=== PATIENT | female | born 1955 | race Caucasian/White ===

== ENCOUNTER 2023-11-06 07:52 | Outpatient (CLI) | payer OTHER, SELFPAY ==
--- NOTE | ~2023-11-06 | CT_ITS ---
EXAMINATION: CT abdomen pelvis w con DATE: 11/06/2023 08:42 INDICATION: Pelvic mass TECHNIQUE: Computed tomography (CT) of the abdomen and pelvis was performed with 100 mL Omnipaque-350 intravenous contrast. Automated exposure control and iterative reconstruction technique were employe d. The dose-length product was 589.63 mGy-cm. COMPARISON: None FINDINGS: Mild dependent atelectasis in bilateral lower lobes. Heart size is normal. No pericardial or pleural effusion. Bilateral breast implants. A couple fluid attenuation hepatic cysts the larger measuring 1. 7 cm. Focal hepatic steatosis at the ligamentum teres. There is mild central intrahepatic ductal or d uctal dilation. There is mild dilation of the common bile duct which measures up to 9 mm maximal diam eter. Splenic calcific location consistent with old granulomatous disease. Pancreas and bilateral adr enal glands are normal. 2 mm nonobstructing stone in a middle calyx of the right kidney. Indeterminat e 4.1 cm intermediate attenuation exophytic lesion at the lower pole of the left kidney most likely p roteinaceous/hemorrhagic cyst although solid neoplasm cannot be absolutely excluded. There is also. I ndeterminate 1.9 cm hyperattenuating lesion with slightly greater than 118 at the upper pole of the l eft kidney which could also represent a complex proteinaceous/hemorrhagic cyst although the degree of increased attenuation raising greater degree of concern for enhancement in the setting of renal cell carcinoma. There are few scattered sigmoid diverticula without adjacent inflammatory stranding to sargent ggest diverticulitis. The bowels including the appendix are otherwise normal. Bladder is normal. The uterus is not identified and has likely been surgically resected. No free intraperitoneal gas or flui d. No pathologically enlarged abdominal or pelvic lymphadenopathy. Mild thoracolumbar levoscoliosis. Severe lower lumbar spondylosis. IMPRESSION: 1. Indeterminate mild intra and extrahepatic biliary ductal dilation. Correlate with liver function t ests and if clinically indicated could consider MRCP for further evaluation. 2. A couple indeterminate left renal lesions which could represent either proteinaceous/hemorrhagic c ysts or solid enhancing renal cell carcinoma. The more concerning measures 1.9 cm at the interpolar l eft kidney. Recommend further evaluation with pre and postcontrast MRI or CT. Reviewed, dictated and finalized at location B. IMPRESSION: 1. Indeterminate mild intra and extrahepatic biliary ductal dilation. Correlate with liver function tests and if clinically indicated could consider MRCP for further evaluation. 2. A couple indeterminate left renal lesions which could represent either prote inaceous/hemorrhagic cysts or solid enhancing renal cell carcinoma. The more co ncerning measures 1.9 cm at the interpolar left kidney. Recommend further evalu ation with pre and postcontrast MRI or CT.
[2023-11-06 08:33] LABS: Estimated Glomerular Filt Rate > 60
== END 2023-11-06 07:53 ==
PROVIDERS: PCP Nurse Practitioner Family; Visit Provider Nurse Practitioner Family
DX: R19.04 Left lower quadrant abdominal swelling, mass and lump (principal)
CPT/HCPCS: 74177; Q9967